=== PATIENT | male | born 1990 | race Caucasian/White ===

== ENCOUNTER 2020-05-24 11:37 | Emergency (ER) | payer BC ==
[~2020-05-24] VITALS: Ht 198.1 cm; Wt 146.6 kg
--- NOTE | 2020-05-24 13:30 | REP ---
INDICATION: productive cough. COMPARISON: No comparison study. TECHNIQUE: Portable upright AP chest radiograph. FINDINGS: The lungs are well inflated and free of infiltrate. Pleural angles are sharp. Heart size is normal. Pulmonary vasculature is not increased. IMPRESSION: No active disease. <Electronically signed by Maynor Frost > 05/24/20 [id number]
[2020-05-24] MEDS ORDERED: MUCI600T31 PO (13:58)
[2020-05-24] MEDS ORDERED: BENZ200C70 PO (13:58)
[2020-05-24 14:22] VITALS: BP 131/68
== END 2020-05-24 14:27 | disposition home or self-care (01) ==
LOC: M ED 11:37
DX: J06.9 Acute upper respiratory infection, unspecified (principal); F17.200 Nicotine dependence, unspecified, uncomplicated; Z88.8 Allergy status to other drugs, medicaments and biological substances
CPT/HCPCS: 71045; 99283; U0003